=== PATIENT | male | born 1950 ===

== ENCOUNTER 2017-08-05 05:50 | Day surgery (SDC) | payer OTHER ==
[~2017-08-05 05:50] MED LIST: ASA81 MG PO; AVAPRO300 MG PO; CLONAZEPAM2 MG PO; SEROQUEL300 MG PO; TOPROL XL50 MG PO; TRIGLIDE160 MG PO; ZOCOR20 MG PO; [UNRECOGNIZED DRUG - OTHER] PO
[2017-08-05] MEDS ORDERED: LOVENOX40 MG/0.4 SUBCUTANEO (07:34)
[2017-08-05] MEDS ORDERED: VANCOMYCIN1 GM/1001 IV (07:34)
[2017-08-05] MEDS ORDERED: POLY119PG PO (07:37)
[2017-08-05] MEDS ORDERED: PERCOCET 5-3251 EACH PO (07:37)
[2017-08-05] MEDS ORDERED: SURFAK240 M1 PO (07:37)
== END 2017-08-05 12:20 | disposition home or self-care (01) ==
LOC: CIR.AMB 05:50
DX: K42.0 Umbilical hernia with obstruction, without gangrene (principal); K43.0 Incisional hernia with obstruction, without gangrene

== ENCOUNTER 2019-09-29 08:27 | Day surgery (SDC) | payer OTHER ==
[~2019-09-29 08:27] MED LIST changes: +ATAC PO; +ATACAND32 MG PO; +CLONAZEPAM1 MG PO; +FENOFIBRATE160 MG PO; +LOVENOX40 MG/0.4 SUBCUTANEO; +MIRTAZAPINE45 M1 PO; +PERCOCET 5-3251 EACH PO; +POLY119PG PO; +QUETIA PO; +SIMVAST PO; +SURFAK240 M1 PO; +TOPROL XL50 M1 PO; +VANCOMYCIN1 GM/1001 IV
== END 2019-09-29 14:45 | disposition home or self-care (01) ==
LOC: CIR.AMB 08:27 → ADM 11:45 → CIR.AMB 11:45
DX: M75.122 Complete rotator cuff tear or rupture of left shoulder, not specified as traumatic (principal); M75.22 Bicipital tendinitis, left shoulder; M19.012 Primary osteoarthritis, left shoulder